=== PATIENT | female | born 1985 | race Caucasian/White ===

== ENCOUNTER 2017-04-02 15:53 | Outpatient (CLI) | payer OTHER ==
[2017-04-02 16:17] LABS: BASOPHILS % 1.8 (0.0-1.5); EOSINOPHILS % 2.3 % (0.0-6.8); MEAN CORPUSCULAR HEMOGLOBIN 24.5 pg (28.0-34.0); MONOCYTES % 7.1 % (0.0-11.0); NEUTROPHILS # 5.1 # k/uL (1.4-7.7)
[2017-04-02 16:49] LABS: eGFR (African) > 60; eGFR (Non-African) > 60
--- NOTE | 2017-04-03 06:58 | Diagnostic Imaging Report ---
LINA MESA [facility] [id number] [facility] [address] [address] Report Submission Date: Apr 02, 2017 4:21:15 PM CDT Patient Study Name: DAMEON TOLENTINO Date: Apr 02, 2017 4:02:30 PM CDT Modality Type: CR Gender: F Description: CHEST : 81 Institution: [facility] Physician: LINA MESA Examination: PA and lateral chest. History: Evaluate lung pond. Findings: PA lateral chest demonstrate a normal cardiac and mediastinal silhouette. No focal infiltrate. No effusion. No blunting of the costophrenic margins. Osseous structures are appropriate for age. Impression: No acute pulmonary process. Electronically signed on Apr 02, 2017 4:21:15 PM CDT by: Jewel HOWARD
== END 2017-04-02 15:54 ==
LOC: RAD 15:53
PROVIDERS: ATTEND Family Medicine
DX: R53.83 Other fatigue (principal); R06.02 Shortness of breath
CPT/HCPCS: 36415; 71020; 80053; 84443; 85025